=== PATIENT | female | born 1980 | race Caucasian/White ===

== ENCOUNTER → 2017-02-08 | Outpatient (CLI) | payer OTHER ==
[~2017-02-08] MED LIST: PRED20TA PO
--- NOTE | 2017-02-08 13:50 | DIAGNOSTIC IMAGING REPORT ---
L VENOUS DOPP LOWER EXT UNILAT HISTORY: 36 years-old Female LEFT LOWER LEG acute swelling of the left lower extremity COMPARISON: None available TECHNIQUE: Multiple real-time sonographic images of the left lower extremity deep venous system was obtained assessing grayscale appearance, color and spectral flow FINDINGS: There is normal flow, compressibility, phasicity and augmentation of the deep venous structures. IMPRESSION: No sonographic evidence of deep venous thrombosis. The above report was generated using voice recognition software. It may contain grammatical, syntax or spelling errors. Electronically signed by: Nadir Trevizo M.D. 02/08/2017 1:48 PM Dictated Date/Time: 02/08/2017 1:43 PM
--- NOTE | 2017-02-08 13:51 | DIAGNOSTIC IMAGING REPORT ---
L TIBIA/FIBULA 2 VIEWS ROUTINE HISTORY: 36 years-old Female LOWER LEG PAIN acute left leg pain, most pronounced anteriorly with history of remote fall COMPARISON: None available TECHNIQUE: 2 views of the left tibia and fibula FINDINGS: There is no acute fracture, dislocation or significant degenerative changes. Soft tissues are unremarkable without opaque foreign body. IMPRESSION: No acute bony abnormality. The above report was generated using voice recognition software. It may contain grammatical, syntax or spelling errors. Electronically signed by: Nadir Trevizo M.D. 02/08/2017 1:49 PM Dictated Date/Time: 02/08/2017 1:48 PM
== END | disposition home or self-care (01) ==
LOC: C.ULTRBC 12:55
PROVIDERS: ATTEND Family Medicine
DX: M79.89 Other specified soft tissue disorders (principal); W19.XXXA Unspecified fall, initial encounter

== ENCOUNTER 2017-02-28 07:54 | Emergency (ER) | payer OTHER ==
[~2017-02-28] VITALS: Ht 167.6 cm; Wt 105.0 kg
[2017-02-28 07:57] VITALS: TEMP 36.7; Ht 167.6 cm; Wt 105.0 kg
[2017-02-28] MEDS ORDERED: DOXY75CA4 PO (08:21)
[2017-02-28] MEDS ORDERED: KETOROLAC TROMETHAMINE 30 MG/ML VIAL IV STA (08:29)
[2017-02-28] MEDS ORDERED: OPTIRAY 320 IV PRN (08:45)
[2017-02-28 09:02] LABS: BASO % 0.3 %; BASO ABS # 0.02 K/uL (0-0.2); COMPLETE YES; EOS % 2.9 %; IG% 0.3 %; LYMPH % 22.2 %; LYMPH ABS # 1.62 K/uL (1.2-3.4); MEAN CELL VOLUME 90.3 fL (80-100); MEAN CORPUSCULAR HEMOGLOBIN 32.3 pg (25-34); MEAN CORPUSCULAR HGB CONC 35.8 g/dl (32-36); MEAN PLATELET VOLUME 10.4 fL (7.4-10.4); MONO % 6.7 %; NEUT % 67.6 %; PLATELET COUNT 203 K/uL (130-400); RED BLOOD COUNT 4.43 M/uL (4.2-5.4)
[2017-02-28 09:13] LABS: URINE APPEARANCE CLEAR (CLEAR); URINE BILIRUBIN NEG (NEG); URINE COLOR DK YELLOW; URINE NITRITE NEG (NEG); URINE PH 5.5 (4.5-7.5); URINE SPECIFIC GRAVITY 1.026 (1.000-1.030); UROBILINOGEN NEG (NEG); ZZUR CULT IF INDIC CLEAN CATCH NO
[2017-02-28 09:16] LABS: MANUAL MICROSCOPIC REQUIRED? NO; REVIEW REQ? NO
[2017-02-28 09:31] LABS: BUN/CREATININE RATIO 15.3 (10-20); CALCIUM 9.5 mg/dl (8.5-10.1); CREATININE 0.79 mg/dl (0.60-1.20)
--- NOTE | 2017-02-28 11:33 | DIAGNOSTIC IMAGING REPORT ---
CT SCAN OF THE ABDOMEN AND PELVIS WITH IV CONTRAST CLINICAL HISTORY: Right lower quadrant abdominal pain. COMPARISON STUDY: No priors. TECHNIQUE: Following the IV administration of 110 cc of Optiray 320, CT scan of the abdomen and pelvis is performed from the lung bases to the proximal femora. Images are reviewed in the axial, sagittal, and coronal planes. IV contrast was administered without complication. A dose lowering technique was utilized adhering to the principles of ALARA. CT DOSE: 1197.12 mGy.cm FINDINGS: Lung bases: The heart is normal in size and without pericardial effusion. Patchy airspace consolidation is identified in the right middle lobe. Lung bases are otherwise clear. No pleural effusion is seen. Liver: The contrast-enhanced liver is enlarged, measuring 19 cm in length. The liver demonstrates diffusely diminished attenuation consistent with hepatic steatosis. There is no intrahepatic biliary ductal dilatation. The hepatic veins and portal veins are patent. Gallbladder: Unremarkable. Spleen: Normal in size and attenuation. Pancreas: Unremarkable. Adrenal glands: Unremarkable. Kidneys: The contrast enhanced kidneys are normal in size and without hydronephrosis. The kidneys enhance symmetrically. Abdominal vasculature: The abdominal aorta is normal in course and caliber. Bowel: The small bowel and colon are normal in course and caliber. The appendix is well-visualized and normal. Peritoneum: There is no intraperitoneal free air or abdominal ascites. Lymphadenopathy: None. Pelvic viscera: The bladder, uterus, and adnexa are normal as visualized. There are bilateral ovarian follicles. A tampon is in place. Skeletal structures: No lytic or blastic lesions are seen. IMPRESSION: 1. There are no acute infectious or inflammatory findings in the abdomen or pelvis. 2. Patchy airspace consolidation is seen in the right middle lobe and is typical in appearance for pneumonia. Radiographic follow-up to resolution is recommended. 3. Hepatomegaly and hepatic steatosis. Electronically signed by: Kaden Spivey M.D. 02/28/2017 11:32 AM Dictated Date/Time: 02/28/2017 11:27 AM
[2017-02-28 11:48] LABS: PROTHROMBIN TIME (PATIENT) 10.2 SECONDS (9.0-12.0)
--- NOTE | 2017-02-28 12:28 | DIAGNOSTIC IMAGING REPORT ---
ULTRASOUND L VENOUS DOPP LOWER EXT UNILAT CLINICAL HISTORY: Left leg pain and swelling. History of trauma. COMPARISON STUDY: 02/08/2017 FINDINGS: Real-time and color flow Doppler imaging were performed. Flow was seen within the femoral, popliteal and calf veins with no intraluminal thrombus demonstrated. The saphenous vein is patent. IMPRESSION: No evidence of left lower extremity DVT Electronically signed by: Daren Baumann M.D. 02/28/2017 12:26 PM Dictated Date/Time: 02/28/2017 12:25 PM
[2017-02-28] MEDS ORDERED: HYDR5SYP11 PO (12:43)
[2017-02-28] MEDS ORDERED: CYCL10TA6 PO (12:43)
--- NOTE | 2017-02-28 12:44 | EMERGENCY ROOM VISIT NOTE ---
History First contact with patient: 08:19 Chief Complaint: OTHER COMPLAINT Stated Complaint: SEVERE LOWER QUAD PAIN History of Present Illness The patient is a 36 year old female who presents to the Emergency Room with complaints of right lower abdominal pain. Patient states that she was recently diagnosed with pneumonia and has been coughing a lot. Her last dose of doxycycline was last night. This morning at 6 AM she had a stabbing pain in the right lower quadrant. Then later after a severe coughing episode she got severe pain in the right lower quadrant again with increased pain with bearing weight on the right leg. The patient denies any fever, vomiting or change in bowel habits. The patient does have some nausea secondary to the pain. She denies any vaginal discharge except for she started with her menses 2 days ago. The patient denies any history of ovarian cysts. The patient denies any urinary symptoms. She denies any prior abdominal surgeries. The patient also states that she fell 2 weeks ago and still has pain in her left leg with associated bruising. She had a venous Doppler done 2 weeks ago which was negative but now she has some redness on the anterior aspect of her lower leg. Review of Systems 10 system review was performed and was negative unless stated otherwise history of present illness. 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 MENTAL Status: Alert and oriented 3. MOUTH: Mucosa is moist CARDIAC: Regular rate and rhythm without murmur. Pulses is full and equal throughout. NECK: Supple, no lymphadenopathy noted. No carotid bruits noted. LUNGS: Clear auscultation without wheezes rales or rhonchi. nontender to palpation without organomegaly or masses. BACK: No CVA tenderness noted. ABDOMEN: Positive bowel sounds all 4 quadrants. Soft,mild tenderness palpation in the right lower quadrant right pelvic area otherwise nontender. Also examined the patient in the rectum position without any palpable lower abdominal masses. No rebound tenderness. EXTREMITIES: Left leg with multiple bruises noted throughout. Tender to palpation over the anterior lower leg. There is an area of erythema and increased temperature to touch on the distal half of the left lower anterior aspect of the lower leg. No pitting edema noted. Medical Decision & Procedures ER Provider Diagnostic Interpretation: CT SCAN OF THE ABDOMEN AND PELVIS WITH IV CONTRAST CLINICAL HISTORY: Right lower quadrant abdominal pain. COMPARISON STUDY: No priors. TECHNIQUE: Following the IV administration of 110 cc of Optiray 320, CT scan of the abdomen and pelvis is performed from the lung bases to the proximal femora. Images are reviewed in the axial, sagittal, and coronal planes. IV contrast was administered without complication. A dose lowering technique was utilized adhering to the principles of ALARA. CT DOSE: 1197.12 mGy.cm FINDINGS: Lung bases: The heart is normal in size and without pericardial effusion. Patchy airspace consolidation is identified in the right middle lobe. Lung bases are otherwise clear. No pleural effusion is seen. Liver: The contrast-enhanced liver is enlarged, measuring 19 cm in length. The liver demonstrates diffusely diminished attenuation consistent with hepatic steatosis. There is no intrahepatic biliary ductal dilatation. The hepatic veins and portal veins are patent. Gallbladder: Unremarkable. Spleen: Normal in size and attenuation. Pancreas: Unremarkable. Adrenal glands: Unremarkable. Kidneys: The contrast enhanced kidneys are normal in size and without hydronephrosis. The kidneys enhance symmetrically. Abdominal vasculature: The abdominal aorta is normal in course and caliber. Bowel: The small bowel and colon are normal in course and caliber. The appendix is well-visualized and normal. Peritoneum: There is no intraperitoneal free air or abdominal ascites. Lymphadenopathy: None. Pelvic viscera: The bladder, uterus, and adnexa are normal as visualized. There are bilateral ovarian follicles. A tampon is in place. Skeletal structures: No lytic or blastic lesions are seen. IMPRESSION: 1. There are no acute infectious or inflammatory findings in the abdomen or pelvis. 2. Patchy airspace consolidation is seen in the right middle lobe and is typical in appearance for pneumonia. Radiographic follow-up to resolution is recommended. 3. Hepatomegaly and hepatic steatosis. Electronically signed by: Kaden Spivey M.D. 02/28/2017 11:32 AM Dictated Date/Time: 02/28/2017 11:27 AM ULTRASOUND L VENOUS DOPP LOWER EXT UNILAT CLINICAL HISTORY: Left leg pain and swelling. History of trauma. COMPARISON STUDY: 02/08/2017 FINDINGS: Real-time and color flow Doppler imaging were performed. Flow was seen within the femoral, popliteal and calf veins with no intraluminal thrombus demonstrated. The saphenous vein is patent. IMPRESSION: No evidence of left lower extremity DVT Electronically signed by: Daren Baumann M.D. 02/28/2017 12:26 PM Laboratory Results 02/28/17 08:50 Red Blood Count 4.43, Mean Corpuscular Volume 90.3, Mean Corpuscular Hemoglobin 32.3, Mean Corpuscular Hemoglobin Concent 35.8, Mean Platelet Volume 10.4, Neutrophils (%) (Auto) 67.6, Lymphocytes (%) (Auto) 22.2, Monocytes (%) (Auto) 6.7, Eosinophils (%) (Auto) 2.9, Basophils (%) (Auto) 0.3, Neutrophils # (Auto) 4.94, Lymphocytes # (Auto) 1.62, Monocytes # (Auto) 0.49, Eosinophils # (Auto) 0.21, Basophils # (Auto) 0.02 02/28/17 08:50 Test 02/28/17 08:50 White Blood Count 7.30 K/uL (4.8-10.8) Red Blood Count 4.43 M/uL (4.2-5.4) Hemoglobin 14.3 g/dL (12.0-16.0) Hematocrit 40.0 % (37-47) Mean Corpuscular Volume 90.3 fL (80-100) Mean Corpuscular Hemoglobin 32.3 pg (25-34) Mean Corpuscular Hemoglobin Concent 35.8 g/dl (32-36) Platelet Count 203 K/uL (130-400) Mean Platelet Volume 10.4 fL (7.4-10.4) Neutrophils (%) (Auto) 67.6 % Lymphocytes (%) (Auto) 22.2 % Monocytes (%) (Auto) 6.7 % Eosinophils (%) (Auto) 2.9 % Basophils (%) (Auto) 0.3 % Neutrophils # (Auto) 4.94 K/uL (1.4-6.5) Lymphocytes # (Auto) 1.62 K/uL (1.2-3.4) Monocytes # (Auto) 0.49 K/uL (0.11-0.59) Eosinophils # (Auto) 0.21 K/uL (0-0.5) Basophils # (Auto) 0.02 K/uL (0-0.2) RDW Standard Deviation 40.5 fL (36.4-46.3) RDW Coefficient of Variation 12.6 % (11.5-14.5) Immature Granulocyte % (Auto) 0.3 % Immature Granulocyte # (Auto) 0.02 K/uL (0.00-0.02) Prothrombin Time 10.2 SECONDS (9.0-12.0) Prothromb Time International Ratio 1.0 (0.9-1.1) Activated Partial Thromboplast Time 25.0 SECONDS (21.0-31.0) Partial Thromboplastin Ratio 1.0 Urine Color DK YELLOW Urine Appearance CLEAR (CLEAR) Urine pH 5.5 (4.5-7.5) Urine Specific [place] 1.026 (1.000-1.030) Urine Protein NEG (NEG) Urine Glucose (UA) NEG (NEG) Urine Ketones NEG (NEG) Urine Occult Blood 3+ (NEG) Urine Nitrite NEG (NEG) Urine Bilirubin NEG (NEG) Urine Urobilinogen NEG (NEG) Urine Leukocyte Esterase NEG (NEG) Urine WBC (Auto) 1-5 /hpf (0-5) Urine RBC (Auto) >30 /hpf (0-4) Urine Hyaline Casts (Auto) 1-5 /lpf (0-5) Urine Epithelial Cells (Auto) 10-20 /lpf (0-5) Urine Bacteria (Auto) NEG (NEG) Anion Gap 8.0 mmol/L (3-11) Est Creatinine Clear Calc Drug Dose 119.4 ml/min Estimated GFR () 110.8 Estimated GFR (Non- 95.6 BUN/Creatinine Ratio 15.3 (10-20) Calcium Level 9.5 mg/dl (8.5-10.1) Total Bilirubin 0.8 mg/dl (0.2-1) Direct Bilirubin 0.2 mg/dl (0-0.2) Aspartate Amino Transf (AST/SGOT) 21 U/L (15-37) Alanine Aminotransferase (ALT/SGPT) 30 U/L (12-78) Alkaline Phosphatase 120 U/L (45-117) Total Protein 7.3 gm/dl (6.4-8.2) Albumin 3.9 gm/dl (3.4-5.0) Lipase 242 U/L (73-393) Medications Administered Medications (Trade) Dose Ordered Sig/Jill Route Start Time Stop Time Status Last Admin Dose Admin Ketorolac Tromethamine (Toradol Inj) 30 mg NOW STAT IV 02/28/17 08:29 02/28/17 08:31 DC 02/28/17 08:56 30 MG ED Course The patient was evaluated. Patient's EMR medication list were reviewed. IV access was obtained. CBC and differential, renal profile, LFTs and lipase levels were ordered. Urinalysis was ordered. The patient was given Toradol 30 mg IV. Also reviewed and were unremarkable. Urinalysis was negative. CT of the abdomen and pelvis with IV and oral contrast was ordered and interpreted as above without any acute findings. Venous Doppler of the left lower extremity was ordered and interpreted by the radiologist as above without any acute findings. She was reevaluated and was resting comfortably. The patient was informed of all findings and discharged home in stable condition.. Medical Decision I suspicions were for an abdominal hernia therefore a CT scan was obtained. I also did a venous Doppler of the left lower extremity since she has had persistent pain and bruising of the left lower extremity since falling 2 weeks ago. I did not suspect acute appendicitis, pyelonephritis, ureteral calculi, ovarian cyst or torsion. [place] Drug Monitoring Program Search Results: patient reviewed within database Medication Reconcilliation Current Medication List: was personally reviewed by me Blood Pressure Screening Patient's blood pressure: Elevated blood pressure Blood pressure disposition: Elevated BP felt to be situational Impression Primary Impression: Abdominal muscle strain Additional Impressions: Pneumonia Left leg pain Departure Information Dispostion Home / Self-Care Condition GOOD Prescriptions Hydrocodone W/ Homatropine (HYCODAN 5/1.5MG 5 ML) 1 Syp Syp 5-10 ML PO Q4H Y for Cough, #200 ML Prov: Ragini Smith PA-C 02/28/17 Cyclobenzaprine Hcl (FLEXERIL) 10 Mg Tab 10 MG PO TID for 7 Days, #21 TAB Prov: Ragini Smith PA-C 02/28/17 Referrals Dami Ahmadi D.O. (PCP) Forms WORK / SCHOOL INSTRUCTIONS, HOME CARE DOCUMENTATION FORM, IMPORTANT VISIT INFORMATION Patient Instructions My [facility] Additional Instructions Ibuprofen 600 mg every 6 hours with food for pain. Take Flexeril as directed. Do not drive while taking the Flexeril. Keep left leg elevated whenever possible. Take Hycodan as needed for cough. Do not drive while taking the Hycodan. If symptoms persist, follow-up with your family doctor for recheck. If symptoms worsen, return to ER. Problem Qualifiers Primary Impression: Abdominal muscle strain Encounter type: initial encounter Qualified Codes: S39.011A - Strain of muscle, fascia and tendon of abdomen, initial encounter Additional Impressions: Pneumonia Pneumonia type: due to unspecified organism Laterality: right Lung location : middle lobe of lung Qualified Codes: J18.1 - Lobar pneumonia, unspecified organism
[2017-02-28 13:10] VITALS: BP 149/99; PULSE 79; O2SAT 97
== END 2017-02-28 13:21 | disposition home or self-care (01) ==
LOC: C.EDB 07:55 → C.EDA 13:21
DX: S39.011A Strain of muscle, fascia and tendon of abdomen, initial encounter (principal); J18.1 Lobar pneumonia, unspecified organism; M79.605 Pain in left leg; X58.XXXA Exposure to other specified factors, initial encounter; Z91.81 History of falling